=== PATIENT | male | born 1990 | race Caucasian/White ===

== ENCOUNTER 2019-10-19 14:03 | Emergency (ER) | payer SELFPAY ==
[2019-10-19] VITALS (33 sets, daily range): BP systolic 105–143; BP diastolic 43–104; PULSE 46–105; RESP 11–22; TEMP 36.7–37; O2SAT 96–100
--- NOTE | 2019-10-19 14:00 | DI.RAD_ITS ---
EXAM: XR TIB/FIB RT and XR ankle right complete CLINICAL HISTORY: Ankle deformity, rule out proximal fracture. TECHNIQUE: 2D digital imaging was performed. COMPARISON: CR XR ANKLE RT COMPLETE from 10/19/2019 FINDINGS: BONES: No acute fracture is present. No bony destructive lesion is seen. There is an acute subtalar j oint dislocation. The distal foot is dislocated medially. The ankle mortise appears intact. No fra cture is identified. However, the bones of the foot are suboptimally imaged. SOFT TISSUE: Soft tissue swelling of the hindfoot. IMPRESSION: Acute subtalar joint dislocation. The distal foot is dislocated medially. The findings were discussed with the emergency department on the date of the examination. DATA REPOSITORY: RADIATION DOSE DELIVERED:
--- NOTE | 2019-10-19 14:09 | ED.GENADUL_ITS ---
Discharge Plan Disposition Patient Disposition: HOME Condition: Stable Discharge Details Chief Complaint: Orthopedic Clinical Impression: Dislocation of ankle, right, closed Primary Care Provider: Naomie,Local ED Provider: Therese Pleitez Discharge Instructions Instructions: Ankle Dislocation (ED) Additional Instructions: Follow-up with [facility] in 1 week. Take medications as directed. Please take Tylenol or Ibuprofen with food every 4-6 hours as needed for pain and swelling. Rest, ice, compression elevation. Please keep boot on until follow-up with orthopedics, except for showering. Referrals: Roney Ruiz MD [ [facility] STAFF PHYSICIAN] - Discharge Data Discharge Date/Time-TO BE ENTERED AT DEPARTURE: 10/19/19 16:55 Medical Decision Making <Therese Pleitez - Last Filed: 10/20/19 08:51> 28-year-old male presents with right ankle leg injury after stepping off a tractor trailer back, rolled ankle and fell to the ground. [place] pop, deformity noted splint in place upon arrival received 200 mcg fentanyl IV prior to arrival. Patient denies LOC, no headache no neck or back pain. He denies any knee pain or hip pain. Severity is moderate to severe. Relieving factors include ice pack, splint and immobilization. 1418: Imaging ordered x-ray ankle, and x-ray of tib-fib to rule out proximal fracture. 4 mg morphine IV push, 4 mg Zofran IV ordered, IV in place upon arrival, patient received approximately 800 mils normal saline prior to arrival. 1454: X-rays show possible ankle dislocation, no obvious fracture noted by my eye. Official radiology results are pending. Orthopedics paged. 1507: Spoke with Dr. Ruiz who is heading into surgery at this time. Will prepare for conscious sedation Dr. Hood ER attending to assist with ankle reduction. We will consent for procedure. Respiratory therapy aware and is at bedside setting up sedation. 1558: Dr. Hood bedside for ankle reduction. Post reduction x-rays ordered of foot and ankle to rule out fracture. 1646: X-rays Via [facility] rad negative for acute fracture of foot , patient in Ortho boot given tramadol 2 tablets to go. Patient is awake alert talking. Patient to be discharged with Ortho boot and crutches. Post Reduction X-ray: EXAM: XR ANKLE RT 2V XR foot RT limited FINDINGS: BONES: No acute fracture or dislocation is present. Previously noted subtalar dislocation has been successfully reduced. JOINTS: The ankle mortise and foot are normally aligned. SOFT TISSUE: Normal. IMPRESSION: Successful reduction of foot dislocation. No acute fracture or dislocation is present 1655: Dr. Ruiz orthopedic surgeon here in department and at bedside for patient evaluation and discussion of patient follow-up. Patient remained hemodynamically stable throughout stay. This text was generated using [employer] dictation system, please disregard any oddities of phrase or misspellings. <Castro Hood MD - Last Filed: 10/19/19 16:03> Patient seen, examined [id number], discussed with Ms. Pleitez. I agree with her assessment and plans were assisted with procedural sedation and bedside reduction of subtalar dislocation. HPI <Therese Pleitez - Last Filed: 10/20/19 08:51> General Mode of arrival: EMS . Date/Time Provider Initiated Documentation: 10/19/19 14:09 . Limitations to Documentation: no limitations and physical limitation . Information obtained by: patient and EMS . HPI Narrative: 28-year-old male presents with right ankle leg injury after stepping off a tractor trailer back, rolled ankle and fell to the ground. [place] pop, deformity noted splint in place upon arrival received 200 mcg fentanyl IV prior to arrival. Patient denies LOC, no headache no neck or back pain. He denies any knee pain or hip pain. He describes this as moderate to severe. Relieving factors include ice pack, splint and immobilization. General Stated Complaint: Orthopedic ECTOR: 3 Review of Systems <Therese Pleitez - Last Filed: 10/20/19 08:51> Narrative: Constitutional: Negative for weight loss, alert and oriented, well groomed, normal body habitus, appears comfortable. HEENT: Denies trauma, headaches, blurry vision, nasal discharge, sore throat, trouble swallowing. Chest: Denies chest pain, palpitations, irregular rhythm, hypertension. Respiratory: Denies Shortness of breath, cough, hemoptysis. GI: Denies abdominal pain, nausea, vomiting, diarrhea, constipation. : Denies dysuria, hematuria, flank pain, rectal bleeding. Extremities: Right ankle pain and deformity after fall. Neuro: Denies dizziness, blurry vision, weakness, syncope, headache or facial numbness. Hematologic: Denies easy bruising, intolerance to heat or cold, hair loss. PFSH <Therese Pleitez - Last Filed: 10/20/19 08:51> Social History Smoking/Tobacco Use Status: Current every day Tobacco Type: cigarettes Drug use: Never Substance use type: does not use Do you feel safe at home: Yes Do you feel safe in your relationship?: Yes Exam <Therese Pleitez - Last Filed: 10/20/19 08:51> Narrative Exam Narrative: Constitutional: Alert and oriented x3. Appears stated age. Normal body habitus. Head: Normocephalic, no trauma. Eyes: Pupils PERRLA, Red reflex noted, EOM's intact. Eyelids symmetrical without lesions, discharge, or swelling. ENT: Bilateral TM's WNL, External ear normal to inspection, no mastoid TTP, swelling, or erythema, Nasal turbinates WNL, no nasal discharge. Normal dentition, Posterior pharynx WNL, no exudate. Chest: RRR, Normal S1, S2, distal pulses intact. Resp: Lungs clear to auscultation bilaterally, no wheezes, rales, or rhonchi. Musculoskeletal: Right ankle deformity, dorsal pedal pulses intact, cap refill 3 seconds. Distal sensation intact, denies any proximal tib-fib tenderness no tenderness with palpation. No other deformities noted. Skin: No suspicious rashes or lesions. Capillary refill less than 2 sec. Neurologic: Cranial nerves II-XII intact. Alert and oriented x 3. DTR's intact. Hematologic/Lymphatic: No ecchymosis, no lymphadenopathy. Course <Therese Pleitez - Last Filed: 10/20/19 08:51> Vital Signs Vital signs: Vital Signs Temperature 36.9 C 10/19/19 14:04 Pulse 76 10/19/19 14:04 Respiratory Rate 17 10/19/19 14:04 Blood Pressure 141/75 H 10/19/19 14:04 Pulse Oximetry 98 10/19/19 14:04 Temperature 36.9 C 10/19/19 14:04 Temperature Source Temporal Artery Scan 10/19/19 14:04 Pulse 76 10/19/19 14:04 Respiratory Rate 17 10/19/19 14:04 Respiratory Effort 10/19/19 14:07 Blood Pressure 141/75 H 10/19/19 14:04 Blood Pressure Position Sitting 10/19/19 14:04 Pulse Oximetry 98 10/19/19 14:04 Oxygen Delivery Method Room Air 10/19/19 14:04 Oxygen Flow Rate 0 10/19/19 14:04 Pain Level 6 10/19/19 14:04 <Castro Hood MD - Last Filed: 10/19/19 16:03> Orthopedic Joint Reduction Joint #1: Side: right Joint Reduction Location: other (Foot/Subtalar) Analgesia: procedural sedation Post Reduction X-Ray Obtained: Yes Procedural Sedation Indication: fracture/dislocation reduction ASA Class: I Time of Last PO Intake: 08:01 Preparation: alarm security or surveillance monitor applied, pulse oximeter, supplemental O2 applied, suction/airway equipment at bedside and IV secured IV Propofol dose (mg): 240 Complications: none
[2019-10-19] MEDS: Ondansetron 4 MG/2 ML VIAL IVP (14:25)
[2019-10-19] MEDS: HYDROmorphone 2 MG/ML VIAL 1 MG IVP (14:58)
--- NOTE | 2019-10-19 16:02 | RESPIRATORY ---
10/19/19-Pt here with a right ankle reduction. Nasal ETCO2 with 2 LPM placed on pt . Jaw thrust performed to increase SPO2.
--- NOTE | 2019-10-19 16:05 | DI.RAD_ITS ---
EXAM: XR ANKLE RT 2V XR foot RT limited CLINICAL HISTORY: post reduction. TECHNIQUE: 2D digital imaging was performed. COMPARISON: CR,XR XR FOOT RT LIMITED from 10/19/2019 FINDINGS: BONES: No acute fracture or dislocation is present. Previously noted subtalar dislocation has been s uccessfully reduced. JOINTS: The ankle mortise and foot are normally aligned. SOFT TISSUE: Normal. IMPRESSION: Successful reduction of foot dislocation. No acute fracture or dislocation is present. DATA REPOSITORY: RADIATION DOSE DELIVERED:
[2019-10-19] MEDS: Propofol 200 MG/20 ML VIAL (16:28)
[2019-10-19] MEDS: Propofol 200 MG/20 ML VIAL 100 MG IVP (16:29)
[2019-10-19] MEDS: traMADol 50 MG TAB PO (16:30)
--- NOTE | 2019-10-19 16:31 | DI.VRAD_ITS ---
PROCEDURE INFORMATION: Exam: XR Right Toe(s) Exam date and time: 10/19/2019 4:08 PM Age: 28 years old Clinical indication: Pain; Foot; Right; Additional info: Best images obtained do to patient unable to move, and the immobilization device used unable to position properly. TECHNIQUE: Imaging protocol: XR Right toes. Views: Minimum 2 views. COMPARISON: CR XR ANKLE RT 2V 10/19/2019 3:55 PM FINDINGS: Bones/joints: There is no evidence of acute fracture.There is no evidence of malalignment or dislocation. Soft tissues: Normal. IMPRESSION: There is no evidence of acute fracture.There is no evidence of malalignment or dislocation. Dictated and Authenticated by: Jean Marie Ovalles MD. Ordering:SHARON Saleh MD
--- NOTE | 2019-10-19 16:31 | DI.VRAD_ITS ---
PROCEDURE INFORMATION: Exam: XR Right Ankle Exam date and time: 10/19/2019 4:00 PM Age: 28 years old Clinical indication: Pain; Ankle; Right; Patient HX: Post reduction. ; Additional info: Best images obtained do to patient unable to move, and the immobilization device used unable to position properly. TECHNIQUE: Imaging protocol: XR Right ankle. Views: 1 or 2 views. COMPARISON: CR XR ANKLE RT COMPLETE 10/19/2019 2:41 PM FINDINGS: Bones/joints: There is no evidence of acute fracture.There is no evidence of malalignment or dislocation. Soft tissues: Bimalleolar soft tissue swelling IMPRESSION: There is no evidence of acute fracture.There is no evidence of malalignment or dislocation. Dictated and Authenticated by: Jean Marie Ovalles MD. Ordering:SHARON Saleh MD
--- NOTE | 2019-10-20 09:21 | ED.FU.B_ITS ---
Patient given crutches prior to discharge.
--- NOTE | 2019-10-20 09:21 | W.ED.FU ---
Patient given crutches prior to discharge.
== END 2019-10-19 16:55 | disposition home or self-care (01) ==
PROVIDERS: Emergency Provider Registered Nurse Emergency
DX: S93.04XA Dislocation of right ankle joint, initial encounter (principal); X50.9XXA Other and unspecified overexertion or strenuous movements or postures, initial encounter
CPT/HCPCS: 27840; 96374; 96375; 99284; 73590; 73600; 73610; 73620; 99282; E0114; J2405; J2704; L4361

== ENCOUNTER 2019-10-27 10:22 | Outpatient (CLI) | payer SELFPAY ==
--- NOTE | 2019-10-27 09:15 | DI.RAD_ITS ---
EXAM: XR ANKLE RT COMPLETE CLINICAL HISTORY: history of right ankle dislocation. TECHNIQUE: 2D digital imaging was performed. COMPARISON: CR XR TIB/FIB RT from 10/19/2019 CR,XR XR FOOT RT LIMITED from 10/19/2019 CR XR ANKLE RT COMPLETE from 10/19/2019 CR XR TIB/FIB RT from 10/19/2019 CR,XR XR ANKLE RT 2V from 10/19/2019 FINDINGS: BONES: No acute fracture or old fracture deformity. The talar dome appears intact. JOINTS: The ankle mortise is normally aligned. The joint spaces are well maintained. The [place] ash and talonavicular articulations appear normal. SOFT TISSUE: Mild soft tissue swelling around the ankle. IMPRESSION: Unremarkable radiographs of the right ankle. DATA REPOSITORY: RADIATION DOSE DELIVERED:
== END 2019-10-27 10:42 ==
PROVIDERS: PCP Student in an Organized Health Care Education/Training Program; Referring Provider Student in an Organized Health Care Education/Training Program; Visit Provider Physician Assistant
DX: M25.571 Pain in right ankle and joints of right foot (principal); M79.89 Other specified soft tissue disorders
CPT/HCPCS: 73610